=== PATIENT | female | born 1995 | race African-American/Black ===

== ENCOUNTER 2017-02-02 08:29 | Emergency (ER) | payer OTHER ==
[2017-02-02 09:37] LABS: BILIRUBIN NEGATIVE (NEGATIVE); BLOOD TRACE-LYSED Ery/uL (NEGATIVE); CLARITY CLEAR (CLEAR); COLOR YELLOW (YELLOW); GLUCOSE (U) NORMAL (NORMAL); KETONE (U) NEGATIVE (NEGATIVE); LEUKOCYTES NEGATIVE Leu/uL (NEGATIVE); NITRITE NEGATIVE (NEGATIVE); PROTEIN NEGATIVE (NEGATIVE); SPECIFIC GRAVITY 1.015 (1.001-1.030); pH 6.5 (5.0-9.0)
[2017-02-02 09:42] LABS: BACTERIA 1+
== END 2017-02-02 10:49 | disposition home or self-care (01) ==
LOC: FER 08:29
PROVIDERS: Internal Medicine
DX: N76.0 Acute vaginitis (principal); B96.89 Other specified bacterial agents as the cause of diseases classified elsewhere; J02.9 Acute pharyngitis, unspecified
CPT/HCPCS: 81001; 87210; 87450; 87804; 87899